=== PATIENT | female | born 1960 | race African-American/Black ===

== ENCOUNTER 2018-03-29 22:43 | Emergency (ER) | payer MEDICARE, MEDICAID ==
[~2018-03-29] VITALS: Ht 162.6 cm; Wt 100.0 kg
[~2018-03-29 22:43] MED LIST: AMOXICILLIN500 MG PO; BACTROBAN21 EX; CEPHALEXIN500 MG OR; CIPRO500 MG OR; CLONIDINE0.2 MG OR; DIFLUNISAL500 MG OR; ERYTHROM ETH400 MG OR; IBUPROFEN200 M2 OR; NO MEDS; NO MORE TANG; PREVACID30 M2 OR; PRILOSEC OTC20 MG OR; PYRIDIUM200 MG OR; REGLAN10 MG OR; TESSALON PER100 MG PO; ULTRAM50 M1 OR; UNKNOWN BP MED; ZITHROMAX250 MG PO; [UNRECOGNIZED DRUG - REMARK]; [UNRECOGNIZED DRUG - REMARK]
[2018-03-29 23:10] LABS: HEMATOCRIT 34.8 % (37.0-47.0); HEMOGLOBIN 11.7 g/dl (12.0-16.0); IMMATURE GRANULOCYTES 0.3 % (0.0-5.0); MEAN CELL VOLUME 98.3 fL CALC (80.0-100.0); MEAN CORPUSCULAR HGB 33.1 pG CALC (26.0-32.0); MEAN CORPUSCULAR HGB CONC 33.6 g/L CALC (32.0-36.0); NEUT# 2.55 thou/uL (2.00-7.15); RED BLOOD COUNT 3.54 mill/uL (4.20-5.60); RED CELL DISTRI WIDTH 13.7 % (11.5-15.5)
[2018-03-29 23:22] LABS: ALBUMIN 3.8 g/dL (3.2-5.0); BILIRUBIN, TOTAL 0.3 mg/dL (0.0-1.4); CREATININE 1.3 mg/dL (0.5-1.0); POTASSIUM 3.6 mmol/l (3.5-5.1); TOTAL PROTEIN 7.3 g/dL (6.3-8.2)
[2018-03-29 23:46] LABS: BARBITURATES NEGATIVE (NEGATIVE); COCAINE POSITIVE (NEGATIVE); METHADONE NEGATIVE (NEGATIVE); OXCYCODONE NEGATIVE (NEGATIVE); TETRAHYDROCANNABIONOL NEGATIVE (NEGATIVE); TRICYLIC ANTIDEPRESSANTS NEGATIVE (NEGATIVE)
[2018-03-30 06:15] VITALS: BP 118/76
== END 2018-03-30 06:15 | disposition home or self-care (01) ==
LOC: ED 22:43
PROVIDERS: Family Medicine
DX: F10.129 Alcohol abuse with intoxication, unspecified (principal); J45.909 Unspecified asthma, uncomplicated; F17.200 Nicotine dependence, unspecified, uncomplicated; E66.9 Obesity, unspecified; R06.02 Shortness of breath

== ENCOUNTER 2019-01-19 09:32 | Emergency (ER) | payer MEDICARE, MEDICAID ==
[~2019-01-19] VITALS: Ht 162.6 cm; Wt 90.0 kg
[2019-01-19 10:33] LABS: HEMATOCRIT 37.3 % (37.0-47.0); HEMOGLOBIN 12.1 g/dl (12.0-16.0); IMMATURE GRANULOCYTES 0.5 % (0.0-5.0); MEAN CELL VOLUME 100.3 fL CALC (80.0-100.0); MEAN CORPUSCULAR HGB 32.5 pG CALC (26.0-32.0); MEAN CORPUSCULAR HGB CONC 32.4 g/L CALC (32.0-36.0); NEUT# 2.78 thou/uL (2.00-7.15); RED BLOOD COUNT 3.72 mill/uL (4.20-5.60); RED CELL DISTRI WIDTH 13.6 % (11.5-15.5)
[2019-01-19 10:48] LABS: ALBUMIN 4.4 g/dL (3.2-5.0); ALKALINE PHOSPHATASE 146 u/l (38-126); ANION GAP 18 (6-22 (CALC)); BILIRUBIN, TOTAL 0.4 mg/dL (0.0-1.4); BUN 11 mg/dL (7-17); BUN/CREATININE RATIO 13 (12-20 (CALC)); CARBON DIOXIDE 25 mmol/l (22-30); CHLORIDE 105 mmol/l (95-108); CREATININE 0.9 mg/dL (0.5-1.0); GFR > 60 ML/MIN (>=60 (CALC)); GFR FOR AFR.AMER. > 60 ML/MIN (>=60 (CALC)); POTASSIUM 3.5 mmol/l (3.5-5.1); SODIUM 145 mmol/l (137-146); TOTAL PROTEIN 8.5 g/dL (6.3-8.2)
[2019-01-19 10:49] LABS: ETHYL ALCOHOL 225 mg/dl (0-30); SGOT/AST 127 u/l (14-36)
[2019-01-19 11:01] LABS: URINE BILIRUBIN - DIPSTICK NEGATIVE (NEGATIVE); URINE BLOOD DIPSTICK TRACE-INTACT (NEGATIVE); URINE COLOR YELLOW; URINE GLUCOSE - DIPSTICK NEGATIVE (NEGATIVE); URINE KETONE NEGATIVE (NEGATIVE); URINE NITRITE - DIPSTICK NEGATIVE (Negative); URINE PH 5.5 (4.5-8.0); URINE PROTEIN - DIPSTICK NEGATIVE (NEG-TRACE); URINE SPECIFIC GRAVITY <=1.005; URINE UROBILINOGEN - DIPSTICK 0.2 E.U./dL (0.2)
[2019-01-19 11:10] LABS: URINE LEUK ESTERASE SMALL (NEGATIVE)
[2019-01-19 11:11] LABS: BARBITURATES NEGATIVE (NEGATIVE); METHADONE NEGATIVE (NEGATIVE); OXCYCODONE NEGATIVE (NEGATIVE); TRICYLIC ANTIDEPRESSANTS NEGATIVE (NEGATIVE)
[2019-01-19 11:15] LABS: COCAINE POSITIVE (NEGATIVE); TETRAHYDROCANNABIONOL NEGATIVE (NEGATIVE)
[2019-01-19 11:20] LABS: URINE BACTERIA FEW hpf; URINE SQUAMOUS EPITHELIAL CELL FEW EPI/hpf (0-FEW)
[2019-01-19 12:48] VITALS: BP 120/77
== END 2019-01-19 13:35 | disposition home or self-care (01) ==
LOC: ED 09:32
DX: F10.129 Alcohol abuse with intoxication, unspecified (principal); F14.10 Cocaine abuse, uncomplicated; F17.200 Nicotine dependence, unspecified, uncomplicated

== ENCOUNTER 2020-01-21 18:22 | Emergency (ER) | payer MEDICARE, MEDICAID ==
[~2020-01-21] VITALS: Ht 162.6 cm; Wt 109.1 kg
[2020-01-21 18:22] VITALS: BP 117/82
== END 2020-01-21 19:15 | disposition left against medical advice (07) ==
LOC: ED 18:22
DX: F10.129 Alcohol abuse with intoxication, unspecified (principal); J45.909 Unspecified asthma, uncomplicated; F19.10 Other psychoactive substance abuse, uncomplicated; F17.200 Nicotine dependence, unspecified, uncomplicated; Z91.19 Patient's noncompliance with other medical treatment and regimen